=== PATIENT | male | born 2000 | race Caucasian/White ===

== ENCOUNTER 2022-12-13 19:20 | Emergency (ER) | payer OTHER ==
[2022-12-13 21:41] LABS: Appearance,Urine Clear (Clear); Bilirubin,Urine 1+ (Negative); Blood,Urine 1 (Negative); Color,Urine Yellow; Glucose,Urine (UA) Negative (Negative); Ketones,Urine 3+ (Negative); PH, Urine 5.5 (5.0-8.0); Protein,Urine 1+ (Negative); Specific Gravity,Urine >1.030 (1.001-1.035)
[2022-12-13 21:42] LABS: Leukocyte Esterase,Urine Negative (Negative); Nitrite,Urine Negative (Negative); Urobilinogen,Urine <2.0 mg/dL (<2.0)
[2022-12-13 21:47] LABS: Mucus,Urine Many /hpf; RBC,Urine 4 /hpf (0-5); WBC,Urine 1 /hpf (0-5)
[2022-12-13 21:48] LABS: Urn Cannabinoid Scrn Detected (NotDetected)
[2022-12-13 21:49] LABS: Amphetamine Screen,Urine Detected (NotDetected); Barbiturate Screen,Urine Not Detected (NotDetected); Benzodiazepines Screen,Urine Not Detected (NotDetected); Cocaine Screen,Urine Not Detected (NotDetected); Methadone Screen, Urine Not Detected (NotDetected); Opiate Screen,Urine Not Detected (NotDetected); Oxycodone Screen, Urine Not Detected (NotDetected); Phencyclidine Screen,Urine Not Detected (NotDetected); Tricyclic Antidepressant,Urine Not Detected (NotDetected)
--- NOTE | 2022-12-14 09:08 | ED ---
Psych HPI - General Chief Complaint: Psychiatric Symptoms Stated Complaint: altered mental state Time Seen by Provider: 12/14/22 08:53 Source: patient, RN notes reviewed Mode of arrival: ambulatory Limitations: no limitations - History of Present Illness Initial Comments: This is a 22-year-old male who presents to the emergency department for psychiatric evaluation. Patient states that he feels like his life is falling apart. He's been struggling with depression for at least a year at this point, and as a result he has been trying to self medicate with alcohol and other illicit substances, such as methamphetamine, cocaine, heroin, and marijuana. Also states that he has pending charges against him, which scares him. Patient has been feeling paranoid like people are trying to harm him or are out to get him. He called his brother, who told him that he is safe, however he states that he still feels scared. Denies any suicidal or homicidal ideations, but states that he just wants help and feels like he cannot continue to go down this current path. Denies any history of psychiatric problems and he has never been treated with any psychiatric medications. MD Complaint: feels depressed - Related Data Home Medications Medication Instructions Recorded Confirmed No Known Home Medications 12/14/22 12/14/22 Allergies Allergy/AdvReac Type Severity Reaction Status Date / Time No Known Allergies Allergy Verified 12/14/22 09:12 Review of Systems ROS Statement: Those systems with pertinent positive or pertinent negative responses have been documented in the HPI. ROS Other: All systems not noted in ROS Statement are negative. Past Medical History Past Medical History: No Reported History History of Any Multi-Drug Resistant Organisms: None Reported Past Surgical History: Ear Surgery Past Psychological History: No Psychological Hx Reported Smoking Status: Vaper Past Alcohol Use History: Daily, Heavy Past Drug Use History: Cocaine, Heroin General Exam Limitations: no limitations General appearance: alert, in no apparent distress Head exam: Present: atraumatic, normocephalic, normal inspection Respiratory exam: Present: normal lung sounds bilaterally. Absent: respiratory distress, wheezes, rales, rhonchi, stridor Cardiovascular Exam: Present: regular rate, normal rhythm, normal heart sounds. Absent: systolic murmur, diastolic murmur, rubs, gallop, clicks Neurological exam: Present: alert, oriented X3, CN II-XII intact Psychiatric exam: Present: depressed, flat affect Skin exam: Present: warm, dry, intact, normal color. Absent: rash Course Vital Signs 12/13/22 12/14/22 12/14/22 19:42 08:52 14:52 Temperature 97.7 F 98.3 F 99 F Pulse Rate 99 79 71 Respiratory 20 18 18 Rate Blood Pressure 119/75 114/76 124/78 O2 Sat by Pulse 99 100 100 Oximetry Medical Decision Making - Medical Decision Making This is a 22-year-old male who presents to the emergency department for psychiatric evaluation. Was pt. sent in by a medical professional or institution? @ -No Did you speak to anyone other than the patient for history? @ -No Did you review nursing and triage notes? @ -Yes, and I agree, it is accurate with regards to the patient's symptoms. Were old charts reviewed? @ -No Differential Diagnosis? @ -Differential Mental Health: Depression, anxiety, bipolar, psychosis, schizophrenia, borderline personality, situational depression, adjustment disorder, behavioral disorder, brain tumor, malingering, substance abuse, encephalopathy, medication reaction, dementia, hypothyroidism, degenerative neurologic disorder, lupus.... This is not meant to be all-inclusive list EKG interpreted by me (3pts min.)? @ -Not obtained X-rays interpreted by me (1pt min.)? @ -Not obtained CT interpreted by me (1pt min.)? @ -Not obtained U/S interpreted by me (1pt. min.)? @ -Not obtained What testing was considered but not performed? (CT, X-rays, U/S, labs)? Why? @ -None What meds were considered but not given? Why? @ -None Did you discuss the management of the patient with other professionals? @ -Yes, EPS, who spoke with the patient's mother. They determined that he has been in touch with the [facility] in [place], and his mother should be able to take him there tomorrow for rehab. Did you reconcile home meds? @ -No Was smoking cessation discussed for >3mins.? @ -No Was critical care preformed (if so, how long)? @ -No Were there social determinants of health that impacted care today? How? (Homelessness, low income, unemployed, alcoholism, drug addiction, transportation, low edu. Level, literacy, decrease access to med. care, shelter, rehab)? @ -Polysubstance abuse, increasing his mental health problems and interfering with his ability to function. Was there de-escalation of care discussed even if they declined? (Discuss DNR or withdrawal of care, Hospice)? @ -No What co-morbidities impacted this encounter? (DM, HTN, Smoking, COPD, CAD, Cancer, CVA, Hep., AIDS, mental health diagnosis, sleep apnea, morbid obesity)? @ -Polysubstance abuse, alcoholism Was patient admitted / discharged? @ -Discharged. UDS positive for amphetamines, methamphetamines, and marijuana. Patient's BAT was 0 and was cleared for EPS evaluation. EPS determined that the patient was safe for discharge home and advised that rehab would be the best option moving forward for him. They have been in touch with the [facility] house in [place], and EPS spoke with the patient's mother, who advised that she should be able to take him there tomorrow for rehab. Patient discharged home in stable condition. Undiagnosed new problem with uncertain prognosis? @ -None Drug Therapy requiring intensive monitoring for toxicity (Heparin, Nitro, Insulin, Cardizem)? @ -None Were any procedures done? @ -None Diagnosis/symptom? @ -Depression, polysubstance abuse Acute, or Chronic, or Acute on Chronic? @ -Chronic Uncomplicated (without systemic symptoms) or Complicated (systemic symptoms)? @ -Uncomplicated Side effects of treatment? @ -None Exacerbation, Progression, or Severe Exacerbation] @ -Progression Poses a threat to life or bodily function? @ -Yes Return precautions reviewed in depth, the patient is instructed to return to the emergency department with any new, worsening, or concerning symptoms. Patient verbalized understanding. This case was discussed in detail with the attending ED physician, Dr. Bush. Presentation, findings, and treatment plan discussed in detail as well. - Lab Data Lab Results 12/13/22 Range/Units 20:38 Urine Color Yellow Urine Appearance Clear (Clear) Urine pH 5.5 (5.0-8.0) Ur Specific [place] >1.030 (1.001-1.035) Urine Protein 1+ H (Negative) Urine Glucose (UA) Negative (Negative) Urine Ketones 3+ H (Negative) Urine Blood 1 (Negative) Urine Nitrite Negative (Negative) Urine Bilirubin 1+ H (Negative) Urine Urobilinogen <2.0 (<2.0) mg/dL Ur Leukocyte Esterase Negative (Negative) Urine RBC 4 (0-5) /hpf Urine WBC 1 (0-5) /hpf Urine Mucus Many H (None) /hpf Urine Opiates Screen Not Detected (NotDetected) Ur Oxycodone Screen Not Detected (NotDetected) Urine Methadone Screen Not Detected (NotDetected) Ur Propoxyphene Screen Not Detected (NotDetected) Ur Barbiturates Screen Not Detected (NotDetected) U Tricyclic Antidepress Not Detected (NotDetected) Ur Phencyclidine Scrn Not Detected (NotDetected) Ur Amphetamines Screen Detected H (NotDetected) U Methamphetamines Scrn Detected H (NotDetected) U Benzodiazepines Scrn Not Detected (NotDetected) Urine Cocaine Screen Not Detected (NotDetected) U Marijuana (THC) Screen Detected H (NotDetected) Disposition Clinical Impression: Depression, Polysubstance abuse Disposition: HOME SELF-CARE Instructions (If sedation given, give patient instructions): Depression (ED), Polysubstance Abuse (ED) Additional Instructions: Return to the emergency department with any new, worsening, or concerning symptoms. Try to get to [facility] tomorrow for rehab. Is patient prescribed a controlled substance at d/c from ED?: No Referrals: None,Stated [REFERRING] - 1-2 days
[2022-12-14 09:16] VITALS: RESP 18
[2022-12-14 14:55] VITALS: BP 124/78; PULSE 71; TEMP 99
== END 2022-12-14 17:13 | disposition home or self-care (01) ==
LOC: EC 19:20
DX: F32.A Depression, unspecified (principal); F19.10 Other psychoactive substance abuse, uncomplicated; F17.290 Nicotine dependence, other tobacco product, uncomplicated; F14.90 Cocaine use, unspecified, uncomplicated; F15.90 Other stimulant use, unspecified, uncomplicated
CPT/HCPCS: 80306; 81001; 82075; 99285

== ENCOUNTER 2024-07-06 00:37 | Inpatient (IN) | payer BC, MEDICAID ==
[2024-07-06] MEDS: ZIPRASIDONE 20 MG VIAL IM STA (01:08)
--- NOTE | 2024-07-06 02:01 | ED ---
Psych HPI - General Chief Complaint: Psychiatric Symptoms Stated Complaint: Petition Time Seen by Provider: 07/06/24 01:00 Source: police Mode of arrival: ambulatory - History of Present Illness Initial Comments: 24-year-old male presents to the emergency department with several police officers. The patient called police stating that his ex girlfriend was getting raped in a field. The mother of the patient stated that the ex-girlfriend has not been in the picture in a while. She was not present at the house driving circles around the property and was breaking windows. The mother states that he has been extremely paranoid and delusional. No history of any psychiatric i llness but did have a previous issue with his mental health when he was on illicit substances. He ended up going to rehab. Police do petition the patient. He cannot provide any history. Patient has pressured, nonsensical speech. - Related Data Previous Rx's Medication Instructions Recorded Artificial Tears-Hypromellose 2 drops BOTH EYES TID PRN 30 Days 07/12/24 [Artificial Tear Drops] #1 ml Ciprofloxacin Ophth Oint [Ciloxan 1 applic RIGHT EYE TID 2 Days #1 07/12/24 0.3% Ophth Oint] each Nicotine 14Mg/24Hr Patch [Habitrol] 1 patch TRANSDERM DAILY 14 Days 07/12/24 #14 patch Nicotine Gum (Polacrilex) 2 mg BUCCAL Q2HR PRN 30 Days #180 07/12/24 [Nicorette] pieceofgum busPIRone HCL [Buspar] 30 mg PO BID 30 Days #60 tablet 07/12/24 hydrOXYzine pamoate [Vistaril] 50 mg PO DAILY 30 Days #60 cap 07/12/24 risperiDONE [Uzedy] 100 mg SQ QMONTHLY #1 each 07/12/24 traZODone HCL [Desyrel] 100 mg PO HS 30 Days #30 tab 07/12/24 Allergies Allergy/AdvReac Type Severity Reaction Status Date / Time No Known Allergies Allergy Verified 08/06/24 08:25 Review of Systems ROS Statement: Those systems with pertinent positive or pertinent negative responses have been documented in the HPI. ROS Other: All systems not noted in ROS Statement are negative. Past Medical History Past Medical History: No Reported History History of Any Multi-Drug Resistant Organisms: None Reported Past Surgical History: Ear Surgery Past Psychological History: No Psychological Hx Reported Smoking Status: Vaper Past Alcohol Use History: Daily, Heavy Past Drug Use History: Cocaine, Heroin General Exam General appearance: alert, other (aggressive) Eye exam: Present: normal appearance, PERRL, EOMI. Absent: scleral icterus, conjunctival injection, periorbital swelling ENT exam: Present: normal exam, mucous membranes moist Neck exam: Present: normal inspection. Absent: tenderness, meningismus, lymphadenopathy Respiratory exam: Present: normal lung sounds bilaterally. Absent: respiratory distress, wheezes, rales, rhonchi, stridor Cardiovascular Exam: Present: tachycardia GI/Abdominal exam: Present: soft, normal bowel sounds. Absent: distended, tenderness, guarding, rebound, rigid Psychiatric exam: Present: agitated, manic Course Vital Signs 07/06/24 07/06/24 07/06/24 00:56 12:36 14:43 Pulse Rate 134 H 72 Respiratory 18 16 16 Rate Blood Pressure 177/115 120/85 O2 Sat by Pulse 98 99 Oximetry Procedures - Restraint - Face to Face Restraint Occurrence 1 Patient's Immediate Situation: Endangers self safety, Endangers staff safety Patient's Reaction to the Intervention: Bizarre, Aggressive, Combative Patient's Medical & Behavioral Condition: Agitated, Manic Need to Continue or Terminate Restraint or Seclusion: Continue Face to Face Eval of Restraint Date: 07/06/24 Face to Face Eval of Restraint Time: 01:06 Medical Decision Making - Medical Decision Making Was pt. sent in by a medical professional or institution (, PA, HAIRCUTTER, urgent care, hospital, or correction...) When possible be specific @ -Patient is brought in by police Did you speak to anyone other than the patient for history (EMS, parent, family, police, friend...)? What history was obtained from this source @ -Spoke with police for history Did you review nursing and triage notes (agree or disagree)? Why? @ -I reviewed and agree with nursing and triage notes Were old charts reviewed (outside hosp., previous admission, EMS record, old EKG, old radiological studies, urgent care reports/EKG's, correction records)? Report findings @ -Reviewed chart from December 13, 2022 where patient was evaluated by EPS and found to have significantly positive urine Differential Diagnosis (chest pain, altered mental status, abdominal pain women, abdominal pain men, vaginal bleeding, weakness, fever, dyspnea, syncope, headache, dizziness, GI bleed, back pain, seizure, CVA, palpatations, mental health, musculoskeletal)? @ -Differential Mental Health Depression, anxiety, bipolar, psychosis, schizophrenia, borderline personality, situational depression, adjustment disorder, behavioral disorder, brain tumor, malingering, substance abuse, encephalopathy, medication reaction, dementia, hypothyroidism, degenerative neurologic disorder, lupus.... This is not meant to be all-inclusive list EKG interpreted by me (3pts min.). @ -Not done X-rays interpreted by me (1pt min.). @ -None done CT interpreted by me (1pt min.). @ -None done U/S interpreted by me (1pt. min.). @ -None done What testing was considered but not performed or refused? (CT, X-rays, U/S, labs)? Why? @ -None What meds were considered but not given or refused? Why? @ -None Did you discuss the management of the patient with other professionals (prof manny i.e. , PA, HAIRCUTTER, lab, RT, psych nurse, group social worker, cookie mixer helper, teacher, customs patrol officer, dependency case manager)? Give summary @ -Spoke with EPS who is evaluating the patient Was smoking cessation discussed for >3mins.? @ -No Was critical care preformed (if so, how long)? @ -No Were there social determinants of health that impacted care today? How? (Homelessness, low income, unemployed, alcoholism, drug addiction, transportation, low edu. Level, literacy, decrease access to med. care, fdc, re hab)? @ -No Was there de-escalation of care discussed even if they declined (Discuss DNR or withdrawal of care, Hospice)? DNR status @ -No What co-morbidities impacted this encounter? (DM, HTN, Smoking, COPD, CAD, Cancer, CVA, ARF, Chemo, Hep., AIDS, mental health diagnosis, sleep apnea, morbid obesity)? @ -None Was patient admitted / discharged? Hospital course, mention meds given and route, prescriptions, significant lab abnormalities, going to OR and other pertinent info. @ -Upon arrival patient is aggressive, nonsensical, agitated. It does take 5 police officers to hold the patient down. The patient is administered Geodon as he is a threat to staff and himself. He is awaiting EPS evaluation in the morning and will be signed out to oncoming physician Undiagnosed new problem with uncertain prognosis? @ -No Drug Therapy requiring intensive monitoring for toxicity (Heparin, Nitro, Insulin, Cardizem)? @ -No Were any procedures done? @ -No Diagnosis/symptom? @ -Acute manic behavior, acute delusional behavior Acute, or Chronic, or Acute on Chronic? @ -Acute Uncomplicated (without systemic symptoms) or Complicated (systemic symptoms)? @ -complicated Side effects of treatment? @ -No Exacerbation, Progression, or Severe Exacerbation? @ -No Poses a threat to life or bodily function? How? (Chest pain, [place], [place], pneumonia, PE, COPD, DKA, ARF, appy, cholecystitis, CVA, Diverticulitis, Homicidal, Suicidal, threat to staff... and all critical care pts) @ -Yes as patient required restraints due to concern for harm to self and others - Lab Data Result diagrams: 07/08/24 08:00 07/08/24 08:00 Lab Results 07/06/24 07/06/24 Range/Units 06:27 10:40 Serum Alcohol <10 mg/dL SARS-CoV-2 (PCR) Not Detected (Not Detectd) Disposition Clinical Impression: Psychotic disorder Disposition: TRANSFER TO PSYCH HOSP/UNIT Condition: Stable
[2024-07-06] MEDS ORDERED: MAG HYDROX/AL HYDROX/SIMETH 355 ML BOTTLE PO PRN (14:22)
[2024-07-06] MEDS ORDERED: IBUPROFEN 600 MG TAB PO PRN (14:22)
[2024-07-06] MEDS ORDERED: ACETAMINOPHEN TAB 325 MG TAB PO PRN (14:22)
[2024-07-06] MEDS ORDERED: MAGNESIUM HYDROXIDE 2,400 MG/30 ML CUP PO PRN (14:22)
[2024-07-06] MEDS ORDERED: LORazepam 2 MG/ML INJ IM PRN (14:22)
[2024-07-06] MEDS ORDERED: OLANZapine 10 MG VIAL IM PRN (14:28)
[2024-07-06] MEDS: HALOPERIDOL LACTATE 5 MG/ML 1 ML VIAL IM STA (15:36)
[2024-07-06] MEDS: diphenhydrAMINE 50 MG/ML 1 ML VIAL IM STA (15:36)
[2024-07-06] MEDS: LORazepam 2 MG/ML INJ IM STA (15:36)
[2024-07-06] MEDS: NICOTINE 14MG/24HR PATCH TRANSDERM SCH (16:39)
[2024-07-06] MEDS: traZODone HCL 100 MG TAB PO SCH (22:50)
[2024-07-07] MEDS ORDERED: HALOPERIDOL LACTATE 5 MG/ML 1 ML VIAL IM PRN (09:39)
[2024-07-07] MEDS ORDERED: LORazepam 2 MG/ML INJ IM PRN (09:39)
--- NOTE | 2024-07-07 10:05 | P.HP ---
Psychiatric H&P - . 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 The patient was making bizarre statements and had noted he was seeing his ex-girlf riend everywhere. He notes that he saw his ex-girlfriend having sex with his father in a field. At this time patient was admitted to the psychiatric unit but resistant and had to receive emergency medical treatments. After which she has been sleeping most the night. UDS was reviewed and positive for amphetamines, methamphetamines and cannabis. Upon meeting the patient he was guarded and limited on explanations outside of yes or no. Patient denies any auditory or visual hallucinations. The patient denies any paranoia or ideas of reference. The patient denies any ongoing depression or anxiety. The patient denies any problems with sleep, energy, appetite or concentration. He denies any feelings of helplessness, hopelessness or worthlessness. He denies any bouts of crying. He denies any guilt or shame. He denies any suicidal or homicidal ideations. He denies any access to guns. He denies any history of drug use. Review of psychiatric systems: Bipolar disorder-negative OCD-negative PTSD-negative Anxiety-negative Collateral information: Patient gave me verbal permission and gave me his mother's telephone number [phone] (Aria). She had noted that he had a history of using Adderall before January 12 when he had his accident. She notes that he would hallucinate on Adderall. She notes on January 12 he was at a rodeo when a bull stepped on his head. He has had multiple fractures in his skull related to this. She notes a personality change after this. She notes that he suffers from short-term memory problems. She notes that his anger goes from 0-60. She notes that he has been using drugs and making threats towards her family. Prior to hospitalization the patient answered the front door with a pistol in his hand. He also made threats towards his grandparents. She currently does not feel safe around the patient. PAST PSYCHIATRIC HISTORY: Patient has a history of TBI and substance abuse. Patient denies being on any psychiatric medications. Clonidine and Trazodone. Patient denies any psychiatric outpatient follow-up. Patient denies any history of suicide attempts in the past. Patient denies any history of physical, verbal or sexual abuse growing up. He denies any history of violence or being incarcerated PMH: TBI ALLERGIES: No known drug allergies CHEMICAL DEPENDENCY HISTORY: Per history from mother Caffeine-positive Tobacco 1 pack daily Cannabis-regular Amphetamines-include Adderall and methamphetamines FAMILY PSYCHIATRIC/SUBSTANCE USE HISTORY: The patient's mother notes that there is bipolar disorder and multiple members in the family and that his brother suffers from pseudo schizophrenia SOCIAL HISTORY: Patient was born and raised in [place] and describes his childhood as "cool". He has an associates degree with good grades. He is currently in a relationship and has 1 child. 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 He believes in a higher power. He denies any service. MENTAL STATUS EXAM: General Appearance: Patient appears to be his stated age is alert, guarded. Patient appears to have fair hygiene and grooming. Behavior: Patient was set up with poor eye contact at 1 point in the interview who placed his hands over his ears. But, after learning he would not be discharged today he looked up and became tense. Speech: Patient's speech is monosyllable and nonpressured Mood/Affect: Patient reports their mood is agitated, affect is congruent and constricted. Suicidality/Homicidality: Patient denies having any homicidal ideation intent or plan. Denies any suicidal ideations intent or plan Perceptions: Patient denies any visual hallucinations however appear to be responding to internal stimuli Though content/process: Patient appears to be paranoid Memory and concentration: AOX3, grossly intact for the purposes of this session. Can spell "WORLD" backwards Judgment and insight: Poor STRENGTHS/WEAKNESSES: strength is that patient is resilient. 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 Patient's actions include answering the door when the police rang the doorbell with a handgun. Additionally he has made multiple threats towards family members as well as hospital staff. Is unclear whether this is related to the concussion that he received from the ball but does meet criteria for Postconcussion syndrome. Additionally he does have a history of hallucinating on stimulants in the past but not having these homicidal incidents. The patient is a risk to others at this point and very guarded. Continue hospitalization PLAN: -Patient is admitted under involuntary status to [facility] for stabilization of psychiatric symptoms and safety. Patient has not signed adult voluntary form and medication consent and is placed in patient's chart. A second certification was completed and along with petition will be filed for court. -Medications : Home meds Clonidine 0.1 mcg take 1 tablet by mouth once daily for anger issues Trazodone 50 mg take 1 tablet by mouth at bedtime for insomnia Start BuSpar 10 mg take 1 tablet by mouth twice daily for TBI aggression (has been shown to be beneficial after 28 days for TBI aggression) -Ativan and Haldol PRN for agitation/aggression -Patient was counselled on substance abuse and desired to cut back on use-Will offer patient subtance use rehab -Patient was informed of the risks, benefits and side effects of the medication and patient verbally consented to taking the medications. Patient signed med consent form and was placed in chart. -Internal Medicine consult to perform medical evaluation and physical. -NRT -nicotine patch -SW on board for discharge planning. Encourage patient to participate in groups to work on coping skills. Will await deferral and court date.
[2024-07-07] MEDS ORDERED: diphenhydrAMINE 50 MG/ML 1 ML VIAL IM PRN (10:41)
[2024-07-07] MEDS: busPIRone HCl 10 MG TAB PO SCH (10:42)
[2024-07-07] MEDS: diphenhydrAMINE 50 MG/ML 1 ML VIAL IM STA (10:46)
[2024-07-07] MEDS: LORazepam 1 MG TAB PO PRN (14:26)
--- NOTE | 2024-07-07 15:09 | P.MDCNMH ---
History of Present Illness H&P Date: 07/07/24 History of Presenting Illness: Patient is a 24-year-old male with a past medical history of TBI, polysubstance abuse with cocaine, amphetamines, methamphetamines, marijuana and heroin, daily alcohol abuse, and nicotine dependence via vaping. He is currently admitted to inpatient psychiatric unit secondary to reports of paranoid and delusional behaviors accompanied by auditory and visual hallucinations. We were consulted for medical management throughout hospitalization. Patient seen and fully evaluated in room 322 bed 1 with psychiatric nurse present throughout examination. Patient withdrawn with paranoid affect. Patient did not open eyes throughout assessment and expressed no complaints, concerns, or questions at this time. Review of systems: Pertinent positives and negatives as discussed in HPI, a complete review of systems was performed and all other systems are negative. Physical exam: Vital signs reviewed and stable. General: Nontoxic, no distress and appears stated age. Derm: Skin warm and dry, normal coloration for ethnicity. Head: Atraumatic, normocephalic and symmetric. Eyes: Patient kept eyes closed throughout examination. Mouth: no lip lesions, mucus membranes moist Cardiovascular: regular rate and rhythm Lungs: Respirations even, regular, and unlabored on room air. Abdominal: soft, nontender to palpation Ext: ROM intact. No gross muscle atrophy, no edema, no contractures Neuro: Speech clear, face symmetrical and CN II-XII grossly intact with no noted focal neuro deficits Psych: Alert and oriented to person, place, time, and situation. Withdrawn and paranoid affect. Assessment and Plan of Care: Polysubstance abuse with cocaine, heroin, amphetamines, methamphetamines, and marijuana History of daily alcohol abuse - Urine drug screen pending unclear when patient last used alcohol or drugs as he was not agreeable to answer these questions only answering yes or no questions. Monitor for signs/symptoms of withdrawal. Recommend inpatient drug and alcohol rehabilitation facility on discharge. Follow-up on urine drug screen, CBC, CMP, hemoglobin A1c, lipid profile, and TSH once resulted. Nicotine dependence Recommend smoking cessation. Continue nicotine patch 14 mg daily. Acute psychosis with paranoid and delusional behaviors accompanied by auditory and visual hallucinations Maintain safe and supportive care with assistance/redirection as needed. Maintain elopement precautions. Management per primary admitting psychiatry team. Data and imaging reviewed: Vital signs reviewed. Blood pressure 120/85, heart rate 72, respiratory rate 16, temp 98.1 F, and SpO2 of 99% on room air. Serum alcohol level was less than 10. COVID PCR negative. Thank you for allowing us to participate in the care of this pleasant patient. Do not hesitate to contact us with questions. Someone can be reached from the [facility] hospitalist group all hours of the day at [phone] or via [facility]. Patient was seen independently by Nurse Practitioner. This document was prepared using [employer] dictation software. Please allow for errors in business services associate while rare they do occur. Pranay Gupta NP rendered care for this patient independently, reviewed the findings and plan as documented in the note above and agree with plan. I did not physically speak with or examine the patient on this date. Past Medical History Past Medical History: No Reported History History of Any Multi-Drug Resistant Organisms: None Reported Past Surgical History: Ear Surgery Past Psychological History: No Psychological Hx Reported Smoking Status: Vaper Past Alcohol Use History: Daily, Heavy Past Drug Use History: Cocaine, Heroin Medications and Allergies Home Medications Medication Instructions Recorded Confirmed Type traZODone HCL [Desyrel] 100 mg PO HS 07/06/24 07/06/24 History Allergies Allergy/AdvReac Type Severity Reaction Status Date / Time No Known Allergies Allergy Verified 07/06/24 10:12 Physical Exam Vitals: Vital Signs Pulse Resp BP Pulse Ox 07/06/24 14:43 16 07/06/24 12:36 72 16 120/85 99 Intake and Output 07/06/24 07/07/24 07/07/24 22:59 06:59 14:59 Other: Weight 62.284 kg Cranial Nerve Examination - Cranial Nerves Cranial Nerve II- Optic: Intact Cranial Nerve III- Oculomotor: Intact Cranial Nerve IV- Trochlear: Intact Cranial Nerve V- Trigeminal: Intact Cranial Nerve - Abducens: Intact Cranial Nerve VII- Facial: Intact Cranial Nerve VIII- Auditory: Intact Cranial Nerve IX- Glossopharyngeal: Intact Cranial Nerve X- Vagus: Intact Cranial Nerve XI- Accessory: Intact Cranial Nerve XII- Hypoglossal: Intact
[2024-07-07] MEDS: traZODone HCL 50 MG TAB PO SCH (21:43)
[2024-07-08 08:16] LABS: Basophils # (A) 0.06 10*3/uL (0.00-0.10); Basophils % (A) 1.1 %; Eosinophils # (A) 0.09 10*3/uL (0.04-0.35); Eosinophils % (A) 1.6 %; HCT 44.9 % (39.6-50.0); Lymphocytes # (A) 2.11 10*3/uL (0.90-5.00); Lymphocytes % (A) 38.2 %; MCH 29.4 pg (27.0-32.0); MCHC 33.4 g/dL (32.0-37.0); MCV 87.9 fL (80.0-97.0); Mean Platelet Volume 9.2 fL (9.5-12.2); Monocytes # (A) 0.65 10*3/uL (0.20-1.00); Monocytes % (A) 11.8 %; Neutrophils % (A) 47.1 %; Platelet Count 306 10*3/uL (140-440); RBC 5.11 10*6/uL (4.40-5.60); RDW 12.2 % (11.5-14.5); WBC 5.52 10*3/uL (4.50-10.00)
[2024-07-08 08:32] LABS: ALT 23 U/L (4-49); AST 41 U/L (17-59); African American GFR (CKD) >90 (>60 ml/min/1.73 sqM); Albumin 4.1 g/dL (3.5-5.0); Alkaline Phosphatase 60 U/L (38-126); Anion Gap 5 mmol/L; Blood Urea Nitrogen 20 mg/dL (9-20); Calcium 9.6 mg/dL (8.4-10.2); Carbon Dioxide 32 mmol/L (22-30); Chloride 101 mmol/L (98-107); Glucose 96 mg/dL (74-99); Non-African American GFR(CKD) >90 (>60 ml/min/1.73 sqM); Potassium 4.1 mmol/L (3.5-5.1); Sodium 138 mmol/L (137-145); Total Bilirubin 0.8 mg/dL (0.2-1.3); Total Protein 6.6 g/dL (6.3-8.2)
--- NOTE | 2024-07-08 10:20 | P.PN ---
Progress Note - Text Progress Note Date: 07/08/24 Interval History: Patient was seen today for for psychiatric follow-up. Patient was remaining a gitated agreeable to speak to loan underwriter. He appeared to be disheveled in appearance, and very poor insight poor judgment. He claims he does not know why he is in the hospital and believes that he has been here for "over a week". He was a poor historian, appeared to be responding to internal stimuli, disorganized thoughts. Claims that he is not willing to take medications at this time, we reviewed the court process. Claims that he slept fairly last night. Denies any issues with appetite. He is denying any auditory or visual hallucinations denies any suicidal homicidal ideations intent or plan. MENTAL STATUS EXAM: General Appearance: Patient appears to be disheveled in appearance, his stated age is alert, guarded. Patient appears to have poor hygiene and grooming. Behavior: Patient was guarded, disorganized. Speech: Patient's speech is nonpressured, fairly concrete Mood/Affect: Patient reports their mood is mildly less agitated, affect is congruent and constricted. Suicidality/Homicidality: Patient denies having any homicidal ideation intent or plan. 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 Patient has not signed adult voluntary form and medication consent and is placed in patient's chart. A second certification was completed and along with petition will be filed for court. -Medications : Clonidine 0.1 mcg take 1 tablet by mouth once daily for anger issues Trazodone 50 mg take 1 tablet by mouth at bedtime as needed for insomnia Added Invega 3 mg nightly p.o. for mood stabilization/psychosis. BuSpar 10 mg take 1 tablet by mouth twice daily for TBI aggression -Ativan and Haldol PRN for agitation/aggression -NRT -nicotine patch -SW on board for discharge planning. Encourage patient to participate in groups to work on coping skills. Will await deferral and court date.
[2024-07-08] MEDS: NICOTINE GUM (POLACRILEX) 2 MG GUM BUCCAL PRN ×2 (12:34→14:56)
[2024-07-08 14:28] LABS: Chol/HDL Ratio 2.04 Ratio; LDL Cholesterol,Calculated 49.7 mg/dL (0.0-131.0); VLDL Calculation 13.52 mg/dL (5.00-40.00)
[2024-07-08] MEDS: OLANZapine ODT 5 MG TAB PO PRN (18:14)
[2024-07-08] MEDS: PALIPERIDONE 3 MG TAB.ER.24 PO SCH (22:00)
--- NOTE | 2024-07-09 11:11 | P.PN ---
Progress Note - Text Progress Note Date: 07/09/24 Interval History: Patient was seen today for for psychiatric follow-up. Patient was wandering the hallways, near the nurses desk. He continues to have a disheveled appearance, continues to have poor frustration tolerance very poor insight poor judgment. He continues to appear to be impulsive. It was documented that he was crying agitated and kicking the door yesterday demanding his medications early. He did take the Invega last night. He denies any depression or anxiety at this time he is fairly superficial focused on discharge. He is claiming that he can get a acidizer helper on the phone to do his deferral and states that "she can vouch for me to get out of here". He does not believe that he needs hospitalization or treatment. Claims that he slept fairly last night. Denies any issues with appetite. He is denying any auditory or visual hallucinations denies any suicidal homicidal ideations intent or plan. MENTAL STATUS EXAM: General Appearance: Patient appears to be disheveled in appearance, his stated age is alert, guarded. Patient appears to have poor hygiene and grooming. Behavior: Patient was guarded, disorganized. Demanding discharge Speech: Patient's speech is nonpressured, fairly concrete Mood/Affect: Patient reports their mood is mildly less agitated, affect is congruent and constricted. Suicidality/Homicidality: Patient denies having any homicidal ideation intent or plan. 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 Patient has not signed adult voluntary form and medication consent and is placed in patient's chart. -Medications : Clonidine 0.1 mcg take 1 tablet by mouth once daily for anger issues Trazodone 50 mg take 1 tablet by mouth at bedtime as needed for insomnia Increase Invega 6 mg nightly p.o. for mood stabilization/psychosis. Will likely need to offer long-acting injection to help ensure compliance prior to discharge. BuSpar 10 mg take 1 tablet by mouth twice daily for TBI aggression -Ativan and Haldol PRN for agitation/aggression -NRT -nicotine patch - on board for discharge planning. Encourage patient to participate in groups to work on coping skills. Will await deferral and court date. Will complete a third clinical certificate today and fax to the courts.
[2024-07-09] MEDS: PALIPERIDONE 6 MG TAB.ER.24 PO SCH (20:10)
[2024-07-09] MEDS: traZODone HCL 50 MG TAB PO PRN (20:12)
[2024-07-09 22:16] VITALS: RESP 16
[2024-07-10] MEDS: ARTIFICIAL TEARS-HYPROMELLOSE DROPS 15 ML BTL BOTH EYES PRN (10:31)
--- NOTE | 2024-07-10 13:18 | P.PN ---
Progress Note - Text Progress Note Date: 07/10/24 Interval History: Patient was seen today for for psychiatric follow-up. Patient was wandering the hallways, near the nurses desk. Patient claims that he has not yet met with the assistant prosecuting attorney. He continues to have fairly limited insight and judgment. Has been taking his medications, we spoke about transitioning to the long-acting injections which she is okay to take. States that he has been feeling a bit better with regard to his mood and also anxiety. He appears to be more visible on the unit and cooperative with the nursing staff and also other patients. Has been trying to go to groups. Claims that he slept fairly last night. Denies any issues with appetite. He is denying any auditory or visual hallucinations denies any suicidal homicidal ideations intent or plan. MENTAL STATUS EXAM: General Appearance: Patient appears to be less disheveled in appearance, his stated age is alert, guarded. Patient appears to have improving hygiene and grooming. Behavior: Patient was more cooperative today, less Demanding discharge Speech: Patient's speech is nonpressured, fairly concrete, improving mildly Mood/Affect: Patient reports their mood is mildly improving, affect is congruent and constricted. Suicidality/Homicidality: Patient denies having any homicidal ideation intent or plan. Denies any suicidal ideations intent or plan Perceptions: Patient denies any visual hallucinations Though content/process: Patient appears to be more goal oriented, minimal insight into his condition. 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 Patient has not signed adult voluntary form and medication consent and is placed in patient's chart. -Medications : Clonidine 0.1 mcg take 1 tablet by mouth once daily for anger issues Trazodone 50 mg take 1 tablet by mouth at bedtime as needed for insomnia Invega 6 mg nightly p.o. for mood stabilization/psychosis. Will likely need to transition patient onto long-acting injection tomorrow if patient continues to be agreeable. BuSpar 10 mg take 1 tablet by mouth twice daily for TBI aggression -Ativan and Haldol PRN for agitation/aggression -NRT -nicotine patch -SW on board for discharge planning. Encourage patient to participate in groups to work on coping skills. Patient will be meeting with his assistant prosecuting attorney to do the deferral. Likely discharge and 1 to 2 days if patient is improving and transition onto long-acting injection.
[2024-07-10] MEDS: busPIRone HCl 10 MG TAB PO SCH (20:13)
--- NOTE | 2024-07-11 09:46 | P.PN ---
Progress Note - Text Progress Note Date: 07/11/24 Interval History: Patient was seen today for for psychiatric follow-up. Patient was wandering the hallways and was insistent on speaking with service writer. he claims that he slept well last night but was restless and this morning with feeling anxious. He received Ativan and also Zyprexa this morning as a as needed. He claims that he feels that his right eye is becoming more painful and itchy and claims that he might be getting an infection and was requesting antibiotic eyedrops. He uses contac ts however has taken them out and believes that it may be from that. Claims that he has been improving with regards to his mood and anxiety, is agreeable to receive the long-acting injection today. Continues to be fairly focused on discharge. Has been eating well. He is denying any auditory or visual hallucinations denies any suicidal homicidal ideations intent or plan. MENTAL STATUS EXAM: General Appearance: Patient appears to be less disheveled in appearance, his stated age is alert, guarded. Patient appears to have improving hygiene and grooming. Behavior: Patient was more cooperative today, less Demanding today Speech: Patient's speech is nonpressured, fairly concrete, improving mildly Mood/Affect: Patient reports their mood is mildly improving, affect is congruent and constricted. Suicidality/Homicidality: Patient denies having any homicidal ideation intent or plan. Denies any suicidal ideations intent or plan Perceptions: Patient denies any visual hallucinations Though content/process: Patient appears to be more goal oriented, minimal insight into his condition. 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 Patient has not signed adult voluntary form and medication consent and is placed in patient's chart. -Medications : Clonidine 0.1 mg take 1 tablet by mouth once daily for anger issues Increase trazodone 100 mg take 1 tablet by mouth at bedtime for insomnia discontinue p.o. Invega as patient will be recieving MYERS uzedy today 100 mg sq, will scheduled qmonthly and next dose will be due on 08/08. increase BuSpar 30 mg take 1 tablet by mouth twice daily for TBI aggression vistaril 50 mg daily for anxiety -Ativan and Haldol PRN for agitation/aggression -NRT -nicotine patch -SW on board for discharge planning. Encourage patient to participate in groups to work on coping skills. Patient signed deferral with tax attorney on 07/10. Likely discharge tomorrow if patient is improving and transition onto long-acting injection.
[2024-07-11] MEDS: hydrOXYzine pamoate 25 MG CAP PO SCH (10:52)
[2024-07-11] MEDS: CIPROFLOXACIN 0.3% OPHTH OINT 3.5 GM TUBE RIGHT EYE SCH (10:52)
[2024-07-11] MEDS: risperiDONE 100 MG/0.28 ML SYR (NO COST) SQ SCH (11:19)
[2024-07-11] MEDS: busPIRone HCl 10 MG TAB PO SCH (20:27)
[2024-07-11] MEDS: traZODone HCL 100 MG TAB PO SCH (20:27)
[2024-07-11 22:27] VITALS: TEMP 97.7
--- NOTE | 2024-07-12 10:17 | P.DS ---
Providers Date of admission: 07/06/24 14:00 Expected date of discharge: 07/12/24 Attending physician: Scott Lord MD Consults: 07/06/24 14:22 Consult Physician Routine Consulting Provider: Wen Aguilar Consult Reason/Comments: H&P and medical Do you want consulting provider notified?: Yes Primary care physician: Stated None - Discharge Diagnosis(es) (1) Psychotic disorder Current Visit: Yes Status: Acute Priority: High (2) History of traumatic brain injury Current Visit: Yes Status: Acute Priority: High (3) Nicotine dependence Current Visit: Yes Status: Acute Priority: Low Hospital Course: Admission HPI: Admission note was completed by Dr Agudelo "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 Patient presented to the hospital and was evaluated in the emergency room. The patient was making bizarre statements and had noted he was seeing his ex-girlfriend everywhere. He notes that he saw his ex-girlfriend having sex with his father in a field. At this time patient was admitted to the psychiatric unit but resistant and had to receive emergency medical treatments. After which she has been sleeping most the night. UDS was reviewed and positive for amphetamines, methamphetamines and cannabis. Upon meeting the patient he was guarded and limited on explanations outside of yes or no. Patient denies any auditory or visual hallucinations. The patient denies any paranoia or ideas of reference. The patient denies any ongoing depression or anxiety. The patient denies any problems with sleep, energy, appetite or concentration. He denies any feelings of helplessness, hopelessness or worthlessness. He denies any bouts of crying. He denies any guilt or shame. He denies any suicidal or homicidal ideations. He denies any access to guns. He denies any history of drug use." Hospital course: Upon admission to the unit patient was admitted involuntarily on a petition and certificate and a second certificate was completed and faxed to the courts. Patient ended up signing a deferral with the divorce attorney and agreeing to treatment. Patient was initially bizarre impulsive psychotic however with time and treatment patient got along well with other patients on the unit and followed unit protocol. Patient was compliant with the medications and denied any side effects throughout hospital course. Patient was started on Invega p.o and then transition onto long-acting injection Uzedy 100 mg sq was give on 07/11 and tolerated well and next dose will be due q. monthly on 08/08. Patient was also restarted back on his home dose of trazodone 100 mg nightly for sleep, BuSpar 30 mg twice daily for TBI aggression/anxiety, Vistaril 50 mg daily scheduled for anxiety. Patient spoke of his stressors however did not participate much in group/activity therapy and mainly kept to themselves during hospitalization. Patient was also seen by medical team for history and physical exam. Throughout the course of the hospitalization patient gradually improved with regards to mood, anxiety, psychosis, agitation/impulsivity, sleep and returned back to their baseline level of functioning. On the day of discharge patient denied any suicidal or homicidal ideations intent or plan denied any auditory or visual read llucinations. Patient endorsed wanting to live for their health and family. The patient denied any access to guns or weapons. Patient denied any paranoia and did not endorse any delusions. Patient does not have a significant history of substance abuse and was counseled on abstaining from all substances including alcohol and marijuana. . Patient was also counseled on the medications and need for regular compliance and was encouraged to follow-up with their outpatient appointment for mental health and also for primary care. Prior to discharge a family meeting will be arranged by social sciences instructor to answer any questions and ensure safety upon discharge incuding making sure that guns/weapons are either removed from the home or locked away. Mental status exam: General Appearance: Patient appears to be stated age is alert, pleasant, and cooperative. Patient is in no acute distress and has improved hygiene and grooming Behavior: Patient is calmly seated without any agitated behavior. Speech: Patient's speech is fluent and nonpressured. Mood/Affect: Patient reports their mood is "good", affect is congruent and euthymic. Suicidality/Homicidality: Patient denies having any suicidal or homicidal ideation intent or plan. Perceptions: Patient denies any auditory or visual hallucinations. Though content/process: There is no evidence of any delusional thought content and thought process is linear and goal-directed. Memory and concentration: AOX3, grossly intact for the purposes of this session. Can spell "WORLD" backwards correctly. Judgment and insight: Chronically limited/impulsive, however has improved with guarded prognosis Impression: Psychotic disorder History of traumatic brain injury Nicotine dependence Plan: -Continue with discharge today as patient has improved and stabilized psychiatrically and is not currently an imminent threat to themself and/or others. Patient will remain at chronically elevated risk for harm to self and/or others due to their impulsivity and history of traumatic brain injury. -Continue medications: d/c po Invega and continue with Uzedy MYERS 100 mg subcutaneous last dose was given 07/11 will be scheduled q. monthly and next dose on 08/08. Trazodone 100 mg nightly for insomnia/mood, BuSpar 30 mg twice daily for traumatic brain injury aggression/anxiety, Vistaril 50 mg daily for anxiety -Patient was counseled on the need for medication compliance and appropriate follow-up at mental health and also primary care for medical issues. Patient verbalized understanding and agreed. -Social work to help coordinate patients discharge today. also to ensure safe home environment that guns/weapons are either removed from the home or locked away. Social work also to arrange for patients follow up appointments with [facility] for psychiatric care along with follow up with primary care provider. -Patient counseled on abstaining from recreational drugs and marijuana and alcohol. Was informed/educated on the adverse effects on their physical and mental health. Patient verbally agreed and understood. -Patient was instructed to return to the hospital or seek immediate medical care if their psychiatric or medical symptoms do worsen or reoccur. Allergies Allergy/AdvReac Type Severity Reaction Status Date / Time No Known Allergies Allergy Verified 07/06/24 10:12 Laboratory Results WBC 5.52 10*3/uL (4.50-10.00) 07/08/24 08:00 RBC 5.11 10*6/uL (4.40-5.60) 07/08/24 08:00 Hgb 15.0 g/dL (13.0-17.0) 07/08/24 08:00 Hct 44.9 % (39.6-50.0) 07/08/24 08:00 MCV 87.9 fL (80.0-97.0) 07/08/24 08:00 MCH 29.4 pg (27.0-32.0) 07/08/24 08:00 MCHC 33.4 g/dL (32.0-37.0) 07/08/24 08:00 Plt Count 306 10*3/uL (140-440) 07/08/24 08:00 MPV 9.2 fL (9.5-12.2) L 07/08/24 08:00 Immature Gran % (Auto) 0.2 % 07/08/24 08:00 Neutrophils % 47.1 % 07/08/24 08:00 Lymphocytes % 38.2 % 07/08/24 08:00 Monocytes % 11.8 % 07/08/24 08:00 Eosinophils % 1.6 % 07/08/24 08:00 Basophils % 1.1 % 07/08/24 08:00 Immature Gran # 0.01 10*3/uL (0.00-0.04) 07/08/24 08:00 Neutrophils # 2.60 10*3/uL (1.80-7.70) 07/08/24 08:00 Lymphocytes # 2.11 10*3/uL (0.90-5.00) 07/08/24 08:00 Monocytes # 0.65 10*3/uL (0.20-1.00) 07/08/24 08:00 Eosinophils # 0.09 10*3/uL (0.04-0.35) 07/08/24 08:00 Basophils # 0.06 10*3/uL (0.00-0.10) 07/08/24 08:00 Sodium 138 mmol/L (137-145) 07/08/24 08:00 Potassium 4.1 mmol/L (3.5-5.1) 07/08/24 08:00 Chloride 101 mmol/L (98-107) 07/08/24 08:00 Carbon Dioxide 32 mmol/L (22-30) H 07/08/24 08:00 Anion Gap 5 mmol/L 07/08/24 08:00 BUN 20 mg/dL (9-20) 07/08/24 08:00 Creatinine 1.01 mg/dL (0.66-1.25) 07/08/24 08:00 Est GFR (CKD-EPI)AfAm >90 (>60 ml/min/1.73 sqM) 07/08/24 08:00 Est GFR (CKD-EPI)NonAf >90 (>60 ml/min/1.73 sqM) 07/08/24 08:00 Glucose 96 mg/dL (74-99) 07/08/24 08:[address] Glu mg/dL 111 mg/dL 07/08/24 08:00 Hemoglobin A1c 5.5 % (<=6.0) 07/08/24 08:00 Calcium 9.6 mg/dL (8.4-10.2) 07/08/24 08:00 Total Bilirubin 0.8 mg/dL (0.2-1.3) 07/08/24 08:00 AST 41 U/L (17-59) 07/08/24 08:00 ALT 23 U/L (4-49) 07/08/24 08:00 Alkaline Phosphatase 60 U/L (38-126) 07/08/24 08:00 Total Protein 6.6 g/dL (6.3-8.2) 07/08/24 08:00 Albumin 4.1 g/dL (3.5-5.0) 07/08/24 08:00 Triglycerides 67.60 mg/dL (0.00-149.00) 07/08/24 08:00 Cholesterol 124.00 mg/dL (0.00-200.00) 07/08/24 08:00 LDL Cholesterol, Calc 49.7 mg/dL (0.0-131.0) 07/08/24 08:00 VLDL Cholesterol, Calc 13.52 mg/dL (5.00-40.00) 07/08/24 08:00 HDL Cholesterol 60.80 mg/dL (40.00-60.00) H 07/08/24 08:00 Cholesterol/HDL Ratio 2.04 Ratio 07/08/24 08:00 TSH 0.558 mIU/L (0.465-4.680) 07/08/24 08:00 Serum Alcohol <10 mg/dL 07/06/24 06:27 SARS-CoV-2 (PCR) Not Detected (Not Detectd) 07/06/24 10:40 Vital Signs Temp 97.7 F 07/11/24 21:00 Pulse 116 H 07/11/24 21:00 Resp 16 07/11/24 21:00 BP 123/87 07/11/24 21:00 Pulse Ox 98 07/11/24 21:00 FiO2 Patient Condition at Discharge: Stable Plan - Discharge Summary New Discharge Prescriptions: New busPIRone HCL [Buspar] 30 mg PO BID 30 Days #60 tablet traZODone HCL [Desyrel] 100 mg PO HS 30 Days #30 tab risperiDONE [Uzedy] 100 mg SQ QMONTHLY #1 each Artificial Tears-Hypromellose [Artificial Tear Drops] 2 drops BOTH EYES TID PRN 30 Days #1 ml PRN Reason: Dry Eye(S) Ciprofloxacin Ophth Oint [Ciloxan 0.3% Ophth Oint] 1 applic RIGHT EYE TID 2 Days #1 each Nicotine 14Mg/24Hr Patch [Habitrol] 1 patch TRANSDERM DAILY 14 Days #14 patch Nicotine Gum (Polacrilex) [Nicorette] 2 mg BUCCAL Q2HR PRN 30 Days #180 pieceofgum PRN Reason: Nicotine Cravings hydrOXYzine pamoate [Vistaril] 50 mg PO DAILY 30 Days #60 cap Discontinued traZODone HCL [Desyrel] 100 mg PO HS Discharge Medication List Artificial Tears-Hypromellose [Artificial Tear Drops] 2 drops BOTH EYES TID PRN 30 Days #1 ml 07/12/24 [Rx] Ciprofloxacin Ophth Oint [Ciloxan 0.3% Ophth Oint] 1 applic RIGHT EYE TID 2 Days #1 each 07/12/24 [Rx] Nicotine 14Mg/24Hr Patch [Habitrol] 1 patch TRANSDERM DAILY 14 Days #14 patch 07/12/24 [Rx] Nicotine Gum (Polacrilex) [Nicorette] 2 mg BUCCAL Q2HR PRN 30 Days #180 pieceofgum 07/12/24 [Rx] busPIRone HCL [Buspar] 30 mg PO BID 30 Days #60 tablet 07/12/24 [Rx] hydrOXYzine pamoate [Vistaril] 50 mg PO DAILY 30 Days #60 cap 07/12/24 [Rx] risperiDONE [Uzedy] 100 mg SQ QMONTHLY #1 each 07/12/24 [Rx] traZODone HCL [Desyrel] 100 mg PO HS 30 Days #30 tab 07/12/24 [Rx] Follow up Appointment(s)/Referral(s): None,Stated [Primary Care Provider] - 1-2 days Activity/Diet/Wound Care/Special Instructions: Avoid the use of street drugs and alcohol. Take all medications as prescribed. When you are in need of refills on your medications, please contact your medical provider and/or outpatient psychiatrist/provider to have this done. Please go to your scheduled outpatient appointment for aftercare treatment. If symptoms return or become worse, call the crisis line at and/or go to the nearest emergency room for evaluation. National Suicide Hotline [address] [facility] confidentiality statement: "The information contained in this communication, including attachments, is confidential, may be privileged, and is intended only for the use of the named recipient(s). Unauthorized use, disclosure, forwarding or copying is strictly prohibited and may be unlawful. If you have received this communication in error, please notify me IMMEDIATELY at the phone number or pager listed above. Discharge Disposition: HOME SELF-CARE
[2024-07-12 10:19] VITALS: BP 113/68; PULSE 120
[2024-07-12] MEDS: cloNIDine HCL 0.1 MG TAB PO PRN (12:10)
== END 2024-07-12 12:06 | disposition home or self-care (01) | DRG 885 ==
LOC: EC 00:37 → 3MHU 14:00
PROVIDERS: ADMIT Psychiatry & Neurology Psychiatry; ATTEND Psychiatry & Neurology Psychiatry
DX: F29 Unspecified psychosis not due to a substance or known physiological condition (principal); F07.81 Postconcussional syndrome; Z59.00 Homelessness unspecified; R45.850 Homicidal ideations; S06.2XAS Diffuse traumatic brain injury with loss of consciousness status unknown, sequela; S06.A Traumatic brain compression and herniation; S02.91XS Unspecified fracture of skull, sequela; F17.210 Nicotine dependence, cigarettes, uncomplicated; F17.290 Nicotine dependence, other tobacco product, uncomplicated; G47.00 Insomnia, unspecified; F41.9 Anxiety disorder, unspecified; Z79.899 Other long term (current) drug therapy; Z56.0 Unemployment, unspecified; Z71.51 Drug abuse counseling and surveillance of drug abuser; W55.2 Contact with cow
CPT/HCPCS: 36415; 80053; 80061; 80320; 83036; 84443; 85025; 87635; 96374; 99285

== ENCOUNTER 2024-08-06 08:09 | Emergency (ER) | payer BC, OTHER ==
[2024-08-06 08:24] VITALS: TEMP 97.9
--- NOTE | 2024-08-06 08:29 | ED ---
General Adult HPI - General Chief complaint: Psychiatric Symptoms Stated complaint: Mental health Time Seen by Provider: 08/06/24 08:25 Source: patient, RN notes reviewed, old records reviewed Mode of arrival: ambulatory Limitations: no limitations - History of Present Illness Initial comments: 24-year-old male presenting for psychiatric evaluation. Patient states he is homeless. Patient admits to hearing voices. He denies suicidal attempt or suicidal ideation. Denies physical complaints. Patient states that he has a bug in his ear that is communicating between him and other people. - Related Data Previous Rx's Medication Instructions Recorded Artificial Tears-Hypromellose 2 drops BOTH EYES TID PRN 30 Days 07/12/24 [Artificial Tear Drops] #1 ml Ciprofloxacin Ophth Oint [Ciloxan 1 applic RIGHT EYE TID 2 Days #1 07/12/24 0.3% Ophth Oint] each Nicotine 14Mg/24Hr Patch [Habitrol] 1 patch TRANSDERM DAILY 14 Days 07/12/24 #14 patch Nicotine Gum (Polacrilex) 2 mg BUCCAL Q2HR PRN 30 Days #180 07/12/24 [Nicorette] pieceofgum busPIRone HCL [Buspar] 30 mg PO BID 30 Days #60 tablet 07/12/24 hydrOXYzine pamoate [Vistaril] 50 mg PO DAILY 30 Days #60 cap 07/12/24 risperiDONE [Uzedy] 100 mg SQ QMONTHLY #1 each 07/12/24 traZODone HCL [Desyrel] 100 mg PO HS 30 Days #30 tab 07/12/24 Allergies Allergy/AdvReac Type Severity Reaction Status Date / Time No Known Allergies Allergy Verified 08/06/24 08:25 Review of Systems ROS Statement: Those systems with pertinent positive or pertinent negative responses have been documented in the HPI. ROS Other: All systems not noted in ROS Statement are negative. Past Medical History Past Medical History: No Reported History History of Any Multi-Drug Resistant Organisms: None Reported Past Surgical History: Ear Surgery Past Anesthesia/Blood Transfusion Reactions: No Reported Reaction Past Psychological History: No Psychological Hx Reported Smoking Status: Current every day smoker, Vaper Past Drug Use History: Prescription Drug Abuse General Exam Limitations: no limitations General appearance: alert, in no apparent distress Head exam: Present: atraumatic, normocephalic Eye exam: Present: normal appearance, PERRL Respiratory exam: Present: normal lung sounds bilaterally. Absent: respiratory distress, wheezes Cardiovascular Exam: Present: regular rate, normal rhythm GI/Abdominal exam: Present: soft. Absent: distended, tenderness Extremities exam: Present: normal inspection, normal capillary refill Neurological exam: Present: alert, oriented X3, CN II-XII intact. Absent: motor sensory deficit Psychiatric exam: Present: flat affect, other (Patient hearing voices, believes there is a bug in his ear that is communicating between him and other people.). Absent: homicidal ideation, suicidal ideation Course Vital Signs 08/06/24 08:15 Temperature 97.9 F Pulse Rate 103 H Respiratory 22 Rate Blood Pressure 142/91 O2 Sat by Pulse 99 Oximetry - Reevaluation(s) Reevaluation #1: 08/06/24 08:48 Cleared for EPS evaluation Medical Decision Making - Medical Decision Making Was pt. sent in by a medical professional or institution (, PA, [employer], urgent care, hospital, or fdc...) When possible be specific @ -No Did you speak to anyone other than the patient for history (EMS, parent, family, police, friend...)? What history was obtained from this source @ -No Did you review nursing and triage notes (agree or disagree)? Why? @ -I reviewed and agree with nursing and triage notes Were old charts reviewed (outside hosp., previous admission, EMS record, old EKG, old radiological studies, urgent care reports/EKG's, fdc records)? Report findings @ -No old charts were reviewed Differential Mental Health Depression, anxiety, bipolar, psychosis, schizophrenia, borderline personality, situational depression, adjustment disorder, behavioral disorder, brain tumor, malingering, substance abuse, encephalopathy, medication reaction, dementia, hypothyroidism, degenerative neurologic disorder, lupus.... This is not meant to be all-inclusive list EKG interpreted by me (3pts min.). @ -As above X-rays interpreted by me (1pt min.). @ -None done CT interpreted by me (1pt min.). @ -None done U/S interpreted by me (1pt. min.). @ -None done What testing was considered but not performed or refused? (CT, X-rays, U/S, labs)? Why? @ -None What meds were considered but not given or refused? Why? @ -None Did you discuss the management of the patient with other professionals (professionals i.e. , PA, [employer], lab, RT, psych nurse, social contact worker, urologist physician, teacher, bsa officer, outpatient case manager)? Give summary @ -No Was smoking cessation discussed for >3mins.? @ -No Was critical care preformed (if so, how long)? @ -No Were there social determinants of health that impacted care today? How? (Homelessness, low income, unemployed, alcoholism, drug addiction, transportation, low edu. Level, literacy, decrease access to med. care, shelter, rehab)? @ -No Was there de-escalation of care discussed even if they declined (Discuss DNR or withdrawal of care, Hospice)? DNR status @ -No What co-morbidities impacted this encounter? (DM, HTN, Smoking, COPD, CAD, Cancer, CVA, ARF, Chemo, Hep., AIDS, mental health diagnosis, sleep apnea, morbid obesity)? @ -Schizophrenia Was patient admitted / discharged? Hospital course, mention meds given and route, prescriptions, significant lab abnormalities, going to OR and other pertinent info. @ -Patient medically cleared and evaluated by EPS, patient will be discharged and taken directly to [facility] for his injection. Stable for discharge at this time. Undiagnosed new problem with uncertain prognosis? @ -No Drug Therapy requiring intensive monitoring for toxicity (Heparin, Nitro, Insulin, Cardizem)? @ -No Were any procedures done? @ -No Diagnosis/symptom? @Psychosis Acute, or Chronic, or Acute on Chronic? @ -[Acute on chronic Uncomplicated (without systemic symptoms) or Complicated (systemic symptoms)? @ -Default Side effects of treatment? @ -No Exacerbation, Progression, or Severe Exacerbation? @ -No Poses a threat to life or bodily function? How? (Chest pain, [place], [place], pneumonia, PE, COPD, DKA, ARF, appy, cholecystitis, CVA, Diverticulitis, Homicidal, Suicidal, threat to staff... and all critical care pts) @ -No Disposition Clinical Impression: Psychotic disorder Disposition: HOME SELF-CARE Condition: Fair Additional Instructions: Please go directly to [facility]. Is patient prescribed a controlled substance at d/c from ED?: No Referrals: Fidel Ojeda NPC [REFERRING] - 1-2 days Time of Disposition: 11:39
[2024-08-06 11:57] VITALS: BP 118/71; PULSE 97; RESP 16
== END 2024-08-06 12:01 | disposition home or self-care (01) ==
LOC: EC 08:09
DX: F29 Unspecified psychosis not due to a substance or known physiological condition (principal); F20.9 Schizophrenia, unspecified; F17.290 Nicotine dependence, other tobacco product, uncomplicated; W44.F4XA Insect entering into or through a natural orifice, initial encounter
CPT/HCPCS: 82075; 99284